=== PATIENT | female | born 1975 | race Caucasian/White ===

== ENCOUNTER 2017-05-22 09:00 | Outpatient (RCR) | payer OTHER, SELFPAY | END 2017-06-11 23:59 | LOC: NS 09:00 | PROVIDERS: Family Provider Family Medicine; PCP Family Medicine; Visit Provider Family Medicine | DX: Z68.22 Body mass index [BMI] 22.0-22.9, adult (principal); Z71.3 Dietary counseling and surveillance | CPT/HCPCS: 97802; 97803 ==

== ENCOUNTER 2017-07-08 10:00 | Outpatient (RCR) | payer OTHER, SELFPAY ==
[2016-12-27 05:38] VITALS: BMI 25.0
[2016-12-31 07:56] VITALS: BP 127/68
== END 2017-07-09 23:59 ==
LOC: NS 10:00
PROVIDERS: Family Provider Family Medicine; PCP Family Medicine; Visit Provider Family Medicine
DX: Z68.22 Body mass index [BMI] 22.0-22.9, adult (principal); Z71.3 Dietary counseling and surveillance
CPT/HCPCS: 97803

== ENCOUNTER 2017-08-04 11:30 | Outpatient (RCR) | payer OTHER, SELFPAY | END 2017-08-09 23:59 | LOC: NS 11:30 | PROVIDERS: Family Provider Family Medicine; PCP Family Medicine; Visit Provider Family Medicine | DX: Z68.22 Body mass index [BMI] 22.0-22.9, adult (principal); Z71.3 Dietary counseling and surveillance | CPT/HCPCS: 97803 ==

== ENCOUNTER 2017-09-02 09:30 | Outpatient (RCR) | payer OTHER, SELFPAY | END 2017-09-08 23:59 | LOC: NS 09:30 | PROVIDERS: Family Provider Family Medicine; PCP Family Medicine; Visit Provider Family Medicine | DX: Z71.3 Dietary counseling and surveillance (principal); Z68.22 Body mass index [BMI] 22.0-22.9, adult | CPT/HCPCS: 97803 ==

== ENCOUNTER 2017-10-07 11:30 | Outpatient (RCR) | payer OTHER, SELFPAY | END 2017-10-09 23:59 | LOC: NS 11:30 | PROVIDERS: Family Provider Family Medicine; PCP Family Medicine; Visit Provider Family Medicine | DX: Z71.3 Dietary counseling and surveillance (principal); Z68.22 Body mass index [BMI] 22.0-22.9, adult | CPT/HCPCS: 97803 ==

== ENCOUNTER 2017-11-06 10:30 | Outpatient (RCR) | payer OTHER, SELFPAY | END 2017-11-06 10:31 | LOC: NS 10:30 | PROVIDERS: Family Provider Family Medicine; PCP Family Medicine; Visit Provider Family Medicine | DX: Z71.3 Dietary counseling and surveillance (principal); Z68.22 Body mass index [BMI] 22.0-22.9, adult | CPT/HCPCS: 97803 ==

== ENCOUNTER → 2018-03-23 10:45 | Outpatient (CLI) | payer OTHER, SELFPAY ==
--- NOTE | 2018-03-23 10:47 | BI_ITS ---
MAMMOGRAPHY - BILATERAL SCREENING REASON FOR EXAM: Female, 42 years old. Routine annual screening examination. PERTINENT HISTORY: Aunt with breast cancer. TECHNIQUE: Digital bilateral breast pa (3D mammographic acquisition) in the CC and MLO projections. 2-D mediolateral oblique (MLO) and craniocaudad (CC) views of both breasts were obtained. CAD: Full Field Digital Mammography with Computer Added Detection was performed. COMPARISON: Comparison is made with prior study dated March 20, 2017 and February 05, 2016. FINDINGS: Breast Composition: The breasts are heterogeneously dense, which may obscure small masses. There are no dominant masses or suspicious calcifications. No other significant abnormalities are identified. There has been no significant change since the prior study. BI/SCREENING MAMM (CAD), BILAT IMPRESSION: Stable bilateral screening mammogram. Yearly follow-up mammogram recommended. (A) ASSESSMENT CATEGORY: BIRADS Category 1: Negative. A letter regarding these results will be sent to the patient by the facility within 30 days. Approximately 10% of breast cancers are not detected by mammography. A normal mammogram should not delay biopsy of a clinically suspicious abnormality. [id number] Electronically Signed: Yoan June MD at 12:40 EST Tel [phone], Service support ,
== END ==
PROVIDERS: Family Provider Family Medicine; PCP Family Medicine; Referring Provider Obstetrics & Gynecology; Visit Provider Obstetrics & Gynecology
DX: Z12.31 Encounter for screening mammogram for malignant neoplasm of breast (principal)
CPT/HCPCS: 77063; 77067

== ENCOUNTER → 2019-02-04 10:33 | Outpatient (CLI) | payer OTHER, SELFPAY ==
[2019-02-10 12:59] LABS: HPV Reflexed? NOT INDICATED
== END ==
PROVIDERS: Visit Provider Obstetrics & Gynecology
DX: Z12.4 Encounter for screening for malignant neoplasm of cervix (principal)
CPT/HCPCS: 88175; G0145

== ENCOUNTER → 2019-03-25 11:00 | Outpatient (CLI) | payer OTHER, SELFPAY ==
--- NOTE | 2019-03-25 11:03 | BI_ITS ---
MAMMOGRAPHY - BILATERAL SCREENING REASON FOR EXAM: Female, 43 years old. Routine annual screening examination. PERTINENT HISTORY: Aunt with breast cancer. TECHNIQUE: Digital bilateral breast rebekah (3D mammographic acquisition) in the CC and MLO projections. 2-D mediolateral oblique (MLO) and craniocaudad (CC) views of both breasts were obtained. CAD: Full Field Digital Mammography with Computer Added Detection was performed. COMPARISON: Comparison is made with prior study dated March 23, 2018 and March 20, 2017. FINDINGS: Breast Composition: The breasts are heterogeneously dense, which may obscure small masses. There are no dominant masses or suspicious calcifications. No other significant abnormalities are identified. There has been no significant change since the prior study. BI/SCREEN MAMM (CAD) W/REBEKAH BILAT IMPRESSION: Stable bilateral screening mammogram. Yearly follow-up mammogram recommended. (A) ASSESSMENT CATEGORY: BIRADS Category 1: Negative. A letter regarding these results will be sent to the patient by the facility within 30 days. Approximately 10% of breast cancers are not detected by mammography. A normal mammogram should not delay biopsy of a clinically suspicious abnormality. [id number] Electronically Signed: Yoan June, at 12:49 EST , Service support ,
== END ==
PROVIDERS: Family Provider Family Medicine; PCP Family Medicine; Referring Provider Obstetrics & Gynecology; Visit Provider Obstetrics & Gynecology
DX: Z12.31 Encounter for screening mammogram for malignant neoplasm of breast (principal)
CPT/HCPCS: 77063; 77067

== ENCOUNTER → 2019-07-06 09:35 | Outpatient (CLI) | payer OTHER, SELFPAY ==
--- NOTE | 2019-07-06 09:40 | RAD_ITS ---
STUDY: X-RAY - LEFT ANKLE REASON FOR EXAM: Female, 43 years old. PT FELL DOWN STAIRS, LATERAL PAIN AND SWELLING, BRUISING ALONG LATERAL FOOT AND ACROSS TOES TECHNIQUE: 3 view(s) of the ankle. COMPARISON: None. FINDINGS: Normal visualized distal tibia and fibula a secondary center of ossification are obtained for aspect of the lateral malleolus. The medial malleolus is normal.. Normal tibiotalar articulation and ankle mortise. Normal visualized talus and calcaneus. The visualized subtalar, talonavicular, calcaneocuboid and tarsal articulations are normal. The soft tissue structures show soft tissue swelling over the lateral malleolus. RAD/Ankle min 3 Views IMPRESSION: Soft tissue swelling over the lateral malleolus with no evidence of fracture. Electronically Signed: Omar Coe, at 11:08 EST Tel , Service support ,
--- NOTE | 2019-07-06 09:40 | RAD_ITS ---
STUDY: X-RAY - LEFT FOOT CLINICAL: Female, 43 years old. PT FELL DOWN STAIRS, LATERAL PAIN AND SWELLING, BRUISING ALONG LATERAL FOOT AND ACROSS TOES COMPARISON: None FINDINGS: [Studies of the left foot shows no evidence of fracture, dislocation, or bony destruction.] RAD/Foot min 3 Views IMPRESSION: [Normal left foot]. Electronically Signed: Omar Saravanan, at 10:24 EST Tel , Service support ,
== END ==
PROVIDERS: PCP Family Medicine; Referring Provider Family Medicine; Visit Provider Family Medicine
DX: S93.402A Sprain of unspecified ligament of left ankle, initial encounter (principal); W10.9XXA Fall (on) (from) unspecified stairs and steps, initial encounter
CPT/HCPCS: 73610; 73630

== ENCOUNTER 2020-02-07 10:34 | Outpatient (RCR) | payer OTHER, SELFPAY | END 2020-02-09 23:59 | LOC: EMPH 10:34 | PROVIDERS: Visit Provider Family Medicine Geriatric Medicine | DX: Z11.59 Encounter for screening for other viral diseases (principal) | CPT/HCPCS: 87635; U0003 ==

== ENCOUNTER → 2020-04-13 13:35 | Outpatient (CLI) | payer OTHER, SELFPAY ==
--- NOTE | 2020-04-13 13:37 | BI_ITS ---
MAMMOGRAPHY - BILATERAL SCREENING REASON FOR EXAM: Female, 44 years old. Routine annual screening examination. PERTINENT HISTORY: Aunt with breast cancer. TECHNIQUE: Digital bilateral breast rebekah (3D mammographic acquisition) in the CC and MLO projections. 2-D mediolateral oblique (MLO) and craniocaudad (CC) views of both breasts were obtained. CAD: Full Field Digital Mammography with Computer Added Detection was performed. COMPARISON: Comparison is made with prior study dated 03/25/2019 and 03/23/2018. FINDINGS: Breast Composition: The breasts are heterogeneously dense, which may obscure small masses. There are no dominant masses or suspicious calcifications. No other significant abnormalities are identified. There has been no significant change since the prior study. BI/SCREEN MAMM (CAD) W/REBEKAH BILAT IMPRESSION: Stable bilateral screening mammogram. Yearly follow-up mammogram recommended. (A) ASSESSMENT CATEGORY: BIRADS Category 1: Negative. A letter regarding these results will be sent to the patient by the facility within 30 days. Approximately 10% of breast cancers are not detected by mammography. A normal mammogram should not delay biopsy of a clinically suspicious abnormality. [id number] Electronically Signed: Yoan June, at 14:34 EST , Service support ,
== END ==
PROVIDERS: PCP Family Medicine; Referring Provider Obstetrics & Gynecology; Visit Provider Obstetrics & Gynecology
DX: Z12.31 Encounter for screening mammogram for malignant neoplasm of breast (principal)
CPT/HCPCS: 77063; 77067

== ENCOUNTER → 2020-06-20 10:45 | Outpatient (CLI) | payer OTHER, SELFPAY ==
[2020-06-20 13:17] LABS: Vitamin D,25 Hydroxy 21.8 ng/mL
[2020-06-20 13:41] LABS: Thyroid Stim Hormone (TSH) 0.99 uIU/mL (0.358-3.74)
== END ==
LOC: LAB 10:47 → MTLAB 10:48
PROVIDERS: PCP Family Medicine; Referring Provider Family Medicine; Visit Provider Family Medicine
DX: Z13.29 Encounter for screening for other suspected endocrine disorder (principal); Z13.21 Encounter for screening for nutritional disorder
CPT/HCPCS: 36415; 82306; 84443

== ENCOUNTER → 2021-03-01 15:34 | Outpatient (CLI) | payer OTHER, SELFPAY ==
[2021-03-06 14:57] LABS: HPV Reflexed? NOT INDICATED
== END ==
PROVIDERS: PCP Family Medicine; Visit Provider Obstetrics & Gynecology
DX: Z12.4 Encounter for screening for malignant neoplasm of cervix (principal)
CPT/HCPCS: 88175; G0145

== ENCOUNTER 2021-03-19 12:13 | Outpatient (RCR) | payer OTHER, SELFPAY | END 2021-04-10 23:59 | LOC: LABSPEC 12:13 | PROVIDERS: PCP Family Medicine; Referring Provider Family Medicine Geriatric Medicine; Visit Provider Family Medicine Geriatric Medicine | DX: Z03.818 Encounter for observation for suspected exposure to other biological agents ruled out (principal) | CPT/HCPCS: 87426 ==

== ENCOUNTER → 2021-04-17 13:08 | Outpatient (CLI) | payer OTHER, SELFPAY ==
--- NOTE | 2021-04-17 13:10 | BI_ITS ---
MAMMOGRAPHY - BILATERAL SCREENING REASON FOR EXAM: Female, 45 years old. Routine annual screening examination. PERTINENT HISTORY: Aunt with breast cancer. TECHNIQUE: Digital bilateral breast rebekah (3D mammographic acquisition) in the CC and MLO projections. 2-D mediolateral oblique (MLO) and craniocaudad (CC) views of both breasts were obtained. CAD: Full Field Digital Mammography with Computer Added Detection was performed. COMPARISON: Comparison is made with prior study dated 04/13/2020 and 03/25/2019 FINDINGS: Breast Composition: The breasts are heterogeneously dense, which may obscure small masses. There are no dominant masses or suspicious calcifications. No other significant abnormalities are identified. There has been no significant change since the prior study. BI/SCRN MAMM (CAD)W/REBEKAH BILAT IMPRESSION: Stable bilateral screening mammogram. Yearly follow-up mammogram recommended. (A) ASSESSMENT CATEGORY: BIRADS Category 1: Negative. A letter regarding these results will be sent to the patient by the facility within 30 days. Approximately 10% of breast cancers are not detected by mammography. A normal mammogram should not delay biopsy of a clinically suspicious abnormality. [id number] Electronically Signed: Yoan June MD at 8:21 EST , Service support ,
== END ==
PROVIDERS: PCP Family Medicine; Referring Provider Obstetrics & Gynecology; Visit Provider Obstetrics & Gynecology
DX: Z12.31 Encounter for screening mammogram for malignant neoplasm of breast (principal)
CPT/HCPCS: 77063; 77067

== ENCOUNTER 2021-05-03 13:37 | Outpatient (RCR) | payer OTHER, SELFPAY | END 2021-05-11 23:59 | LOC: EMPH 13:37 | PROVIDERS: PCP Family Medicine; Referring Provider Family Medicine Geriatric Medicine; Visit Provider Family Medicine Geriatric Medicine | DX: Z03.818 Encounter for observation for suspected exposure to other biological agents ruled out (principal) ==

== ENCOUNTER 2022-05-01 07:20 | Day surgery (SDC) | payer OTHER, SELFPAY ==
[2022-05-01] VITALS (10 sets, daily range): BP systolic 100–113; BP diastolic 50–71; PULSE 76–88; RESP 16–18; TEMP 36.1–36.3; O2SAT 93–100; BMI 25.1
[2022-05-01] MEDS: Lactated Ringers 1,000 ML 15 ML IV ×2 (07:55→09:09)
--- NOTE | 2022-05-01 08:39 | DCINST_ITS ---
Discharge Instructions Procedure General Surgery Diet Discharge Diet: Light diet - advance as tolerated (if you have questions about your diet instructions, please talk to you doctor.) Activity Discharge Activity: May Not Drive (for 3-5 days or while taking narcotic pain medicine.) May shower in (days): 1 Lifting Restrictions: 10 pounds Dressing / Incision Call your doctor if your incision/area has: Continuous Slow Oozing, Sudden Increased Bleeding, Increased Pain/ Swelling, Increased Redness and Foul Smelling Discharge Call your doctor if you observe: Fever of 101 or Higher Suture Line Care: Avoid Pulling/Pushing and Avoid Pinching/Bending Additional Dressing/Incision Instructions:: Change or remove dressing in 4 days. Leave steri-strips in place for 1 week. Follow Up Care Please Follow Up With: Vito Jeffers MD When: Call [phone] to make an appointment to be seen in about 10 days. Test Results: Test results from this visit will be discussed in further detail at your follow- up appointment, if applicable. Discharge Plan Admission Attending Provider: Vito Jeffers Primary Care Provider: Jimmy Gonzáles Discharge Orders/Prescriptions Prescriptions: No Action amitriptyline 25 mg tablet 10 mg PO QHS PRN (Reason: Sleep) Mirena 20 mcg/24 hours (8 yrs) 52 mg intrauterine device 1 device intrauterine ONCE Rx Instructions: as a single dose fluoxetine 20 mg capsule 20 mg PO DAILY Qty: 90 4RF Referrals / Follow Up: Jimmy Gonzáles MD [Primary Care Provider] - Disposition Disposition (needs filled in before D/C Order can be placed): Home, Self Care
--- NOTE | 2022-05-01 08:39 | HP.PCM_ITS ---
History and Physical Date of Admission: 05/01/22 isit Reasons:?UMBILICAL HERNIA Chief Complaint: Consult for umbilical hernia Registered Land Surveyor Required: No Is patient in pain?: No Allergies No Known Allergies Allergy (Verified 04/18/22 08:31) Medications amitriptyline 25 mg tablet 10 mg PO QHS PRN 03/13/22 [History Confirmed 04/18/22] fluoxetine 20 mg capsule 20 mg PO DAILY #90 caps 03/13/22 [Rx Confirmed 04/18/22] levonorgestrel 20 mcg/24 hours (8 yrs) 52 mg intrauterine device (Mirena) 1 device intrauterine ONCE 03/13/22 [History Confirmed 04/18/22] PFSH Surgical History? S/P tonsillectomy Family History? Father HyperlipidemiaMother Hypertension Social History? Smoking Status:? Never smoker alcohol intake:? never substance use type:? does not use caffeine:? No what type of physical activity do you participate in:? walking and weight training frequency:? 5-6 times per week seatbelt use:? always do you feel safe at home:? Yes additional social history:? - Viktor HPI HPI HPI: 46-year-old female presents today to discuss umbilical hernia.? She is referred by Dr. Obdulio Rocha and Dr. Shad Gonzáles and a written compromise surgical consult recommendations will return to him.? By report she had presented with abdominal pain in the periumbilical area.? Sudden onset.? At the time of her evaluation umbilical hernia was felt to be reducible.? She states that literally on a weekly basis now she is having protrusion where it becomes 3-4 times larger than its [place] self.? It is tender.? She is still able to reduce it.? She has not had any surgery.? No abdominal wall incisions. 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 There was no eliciting injury or accident.? She knew she had an umbilical hernia dating back to the summer as it was noticed when she was swimming.? She only recently has had the discomfort as mentioned. She otherwise enjoys very good health ROS General General: No weight change, appetite, fatigue, colon cancer, breast cancer or weakness HEENT HEENT: No difficulty swallowing, eye injury, eye surgery, swollen glands or hoarseness Endo Endocrine: No thyroid disease, diabetes mellitus, thyroid cancer, Hair loss, heat intolerance or cold intolerance Skin Skin: No rash or changing moles Breast Breast: No left breast lump, right breast lump, nipple discharge, breast pain, abnormal mammogram, abnormal US or breast enlargement Musc Musculoskeletal: No back problems, arthritis, rheumatoid arthritis, gout or joint pain Cardio Cardiovascular: No murmur, pacemaker, heart disease, atrial fibrillation, high blood pressure, heart attack, heart stent, palpitations, shortness of breat with exertion or chest pain Psych Psychiatric: No depression, anxiety or hearing voices Resp Respiratory: No shortness of breath, No sleep apnea, No cough, No COPD, No asthma, No emphysema and No wheezing Gastro Gastrointestinal: No abdominal pain, No nausea or vomiting, No diarrhea, No constipation, No blood in stool, No acid reflux, No hemorrhoids, No ulcers, No gallbladder problem and No black,tarry stools Estrada Hematologic: No blood thinners, No blood disorders, No bleeding, No anemia and No blood clots Neuro Neurologic: No system reviewed and no additional complaints, except as documented, No as per HPI, No abnormal gait, No abnormal hearing, No abnormal movements, No abnormal speech, No behavioral changes, No burning sensations, No confusion, No convulsions, No disequilibrium, No dizziness, No localized weakness, No frequent falls, No headache(s), No lack of coordination, No loss of vision, No memory loss, No numbness, No other visual disturbances, No radicular pain, No restless legs, No sensory deficit, No syncope, No tingling, No tremor(s), No weakness and No other Exam Const General: cooperative, healthy appearing, comfortable and no acute distress [facility] Head: normal to inspection Eyes General: appearance normal, both eyes and all related structures Neck Neck: normal visual inspection Chest Chest palpation & inspection: normal inspection of the chest Resp Effort & Inspection: normal respiratory effort Auscultation: clear to auscultation bilaterally Cardio Rate: regular rate Rhythm: regular rhythm GI Palpation: soft and no hepatosplenomegaly Auscultation: normal bowel sounds Other: Obviously noticeable umbilical hernia with contents.? Prominent on the superior aspect of the umbilicus particular when standing.? Despite effort it is not completely reducible with continued residual fibrofatty type tissue present even with the patient's supine Musc Cervical Spine: normal cervical lordosis Skin General: no rashes or lesions noted Neuro General: patient alert, patient awake and patient oriented x3 Extrem General: normal to inspection Psych Appearance: grossly normal Assessment and Plan Assessment and Plan (1) Umbilical hernia without obstruction or gangrene: ?Status:?Acute ?Plan: Incarcerated umbilical hernia.? Not strangulated.? Not completely reducible.? Symptomatic. I recommended the patient umbilical herniorrhaphy with mesh.? Likely utilize a Ventralex type product.? Hopefully in the preperitoneal space.? I discussed technique, benefit, risk, alternatives.? She has had an opportunity to ask and have questions answered.? We will try to schedule and expedite her care. I have been very explicit regarding her return to work and work activities.? I anticipate a full 6weeks to 80% strength.? She is aware of the risk of breakdown and recurrence if physical activity is pursued too early.? I appreciate the opportunity of assisting with her surgical care. Copy: Dr. Shad Gonzáles and Dr. Obdulio Jeffers M.D., F.A.C.S I have examined the patient and the H&P has been reviewed. There are no clinical changes since date of exam. Vito Jeffers M.D., F.A.C.S.
[2022-05-01] MEDS: Cefazolin 2 GM in 0.9% Normal Saline 100 ML IV (09:08)
--- NOTE | 2022-05-01 09:30 | HERN_PTH ---
PATIENT: JEFFERY SHELL LOC: [facility] U#:[id number] AGE/SX: 46/F ROOM: RE05/01/[address]: Dr. Vito Jeffers MD : 1975 BED: DIS: 05/01/2022 SPEC #: [id number] RECD: 05/01/22 10:18 STATUS: MARY REAnais #: [id number] DANIEL: 05/01/22 09:[address]: Vito Jeffers DEPT: SURGICAL PATHOLOGY RECD BY: Arleen Guerra ENTERED: 05/01/22 11:04 SP TYPE: Hernia OTHR DR: Dr. Shad Gonzáles MD Tissues: HERNIA Procedures: Surgery Specimen Level II HEADER OPERATION: Umbilical hernia repair with mesh PRE-OP DIAGNOSIS: Umbilical hernia TISSUE SUBMITTED: Umbilical hernia sac and contents MICROSCOPIC DIAGNOSIS Umbilical hernia sac and contents: A piece of fibroadipose and fibroconnective tissue, consistent with hernia sac and with chronic inflammation and reactive changes. EWA:carmelo 05/02/2022 MICROSCOPIC DESCRIPTION Slides are reviewed. GROSS DESCRIPTION Received in fixative is one container labeled with the patient's name and designated umbilical hernia sac and contents. The specimen consists of an irregular piece of adipose tissue measuring 5 x 4 x 1 cm. Sections do not reveal any mass lesion. Environmental Health Technologist sections are submitted in one cassette. / EWA:carmelo 05/01/2022 TC:5 CPT: 00048
[2022-05-01] MEDS: Bupivacaine 0.25% 30 ML Vial (09:58)
--- NOTE | 2022-05-01 09:59 | PCM.OPRPT ---
Report of Operation Date of Procedure: 05/01/22 Pre-Operative Diagnosis: Incarcerated umbilical hernia Post-Operative Diagnosis: Same Surgery/Procedure Performed:: Umbilical herniorrhaphy with 4.[address] hernia patch Lot [id number], reference [id number], expiry date 11/07/2023 Description of Surgical Findings:: Timeout informed consent was obtained. 46-year-old female was taken to the operating placed on table underwent general anesthesia Ancef 2 g were given intravenously the abdomen sterilely prepped and draped a curvilinear incision was made in the inferior portion of the umbilicus sharp and blunt dissection was performed there was a significant amount of preperitoneal fatty tissue incarcerated within the defect this was sharply and bluntly dissected free and then amputated with electrocautery the preperitoneal space was developed a 4.[address] hernia patch was moistened and then placed in the retrorectus space. Good positioning was felt to been achieved. The tails were secured with interrupted 0 Nurolon. The fascia was approximated transversely and this 1.5 cm diameter defect with simple sutures of 0 Nurolon. The umbilicus was secured to the fascia with a interrupted 4-0 Monocryl and then the subdermal edges approximated with the same. Skin edges approximated with surgical glue. Cottonball, Telfa, OpSite dressings applied. Sponge instrument and needle counts were reported to the surgeon to be correct. Specimen hernia sac with contents. Drains none. Blood loss minimal. It is of note that 0.25% Marcaine was used as a local anesthetic. A total of 30 cc was used. The patient was taken to recovery area in satisfied condition without apparent complication Vito Jeffers M.D., F.A.C.S. Surgeon: Vito Jeffers Type of Anesthesia: General and Local Anesthesiologist: Oly Issa
== END 2022-05-01 12:34 | disposition home or self-care (01) ==
LOC: SDC 07:21 → AC 07:22
PROVIDERS: PCP Family Medicine; Referring Provider Surgery; Visit Provider Surgery
PROC: (CPT 49587; principal; 2022-05-01 09:15)
DX: K42.0 Umbilical hernia with obstruction, without gangrene (principal)
CPT/HCPCS: 49587; 00750; 88302; J7120; C1781; J2405

== ENCOUNTER → 2022-05-14 | Outpatient (CLI) | payer OTHER, SELFPAY ==
--- NOTE | 2022-05-14 09:29 | BI_ITS ---
MAMMOGRAPHY - BILATERAL SCREENING REASON FOR EXAM: Female, 46 years old. Routine annual screening examination. PERTINENT HISTORY: Aunt with breast cancer. TECHNIQUE: Digital bilateral breast rebekah (3D mammographic acquisition) in the CC and MLO projections. 2-D mediolateral oblique (MLO) and craniocaudad (CC) views of both breasts were obtained. CAD: Full Field Digital Mammography with Computer Added Detection was performed. COMPARISON: Comparison is made with prior study dated 04/17/2021 and 04/13/2020. FINDINGS: Breast Composition: The breasts are heterogeneously dense, which may obscure small masses. There are no dominant masses or suspicious calcifications. Stable small benign appearing bilateral axillary lymph nodes. No other significant abnormalities are identified. There has been no significant change since the prior study. BI/SCRN MAMM (CAD)W/REBEKAH BILAT IMPRESSION: Stable bilateral screening mammogram. Yearly follow-up mammogram recommended. (A) ASSESSMENT CATEGORY: BIRADS Category 2: Benign. A letter regarding these results will be sent to the patient by the facility within 30 days. Approximately 10% of breast cancers are not detected by mammography. A normal mammogram should not delay biopsy of a clinically suspicious abnormality. [id number] Electronically Signed: Yoan June MD at 12:28 EST ,
== END | disposition home or self-care (01) ==
LOC: OPBI 09:28
PROVIDERS: PCP Family Medicine; Visit Provider Obstetrics & Gynecology
DX: Z12.31 Encounter for screening mammogram for malignant neoplasm of breast (principal)
CPT/HCPCS: 77063; 77067

== ENCOUNTER → 2022-10-17 | Outpatient (CLI) | payer OTHER, SELFPAY ==
--- NOTE | 2022-10-17 12:03 | RAD_ITS ---
HISTORY: melena TECHNIQUE: XR Abdomen Series W/ Chest 1 View. COMPARISON: None. FINDINGS: --Chest: CARDIOMEDIASTINAL BORDERS: Cardiac silhouette within normal limits in size. Mediastinal contour not enlarged. LUNGS: Radiographically clear. PLEURA: No pneumothorax or significant pleural effusion. BONES: Unremarkable. --Abdomen: BOWEL GAS PATTERN: No dilated small bowel loops identified. Large amount of stool throughout the colon FREE AIR: None seen on upright view. CALCIFICATIONS: Small right pelvic phlebolith observed. BONES AND SOFT TISSUES: Intrauterine device in the pelvis. No acute osseous abnormality identified. RAD/Acute Abdomen Inc Chest IMPRESSION: Large amount of stool in the colon. Electronically Signed: Nisa Suggs MD at 8:48 EDT ,
[2022-10-17 15:42] LABS: Erythrocyte Sedimentation Rate 5 mm/hr (0-30)
[2022-10-17 15:45] LABS: Hematocrit 38.9 % (37-47); Mean Corp Hgb Conc 33.4 g/dL (32-36); Mean Corpuscular Volume 92.8 fL (81-99); Mean Platelet Vol. 9.5 fl (6.2-12.0); Platelet Count 283 K/mm3 (150-450); RBC Distribution Width CV 12.1 % (11.6-14.6); RBC Distribution Width SD 41.1 fl (35.1-43.9); Red Blood Count 4.19 M/mm3 (4.2-5.4); White Blood Count 4.4 K/mm3 (4.4-11.0)
[2022-10-17 16:19] LABS: ALB/GLOB Ratio 1.1 RATIO (0.9-2.4); AST(SGOT) 15 U/L (15-37); Alanine Aminotransfer ALT/SGPT 20 U/L (13-56); Alkaline Phosphatase 49 U/L (45-117); Anion Gap 6 (5-15); BUN 12 mg/dL (7-18); BUN/Creat Ratio 17.4 RATIO (10-20); Calcium,Total 9.4 mg/dL (8.5-10.1); Chloride 108 mmol/L (98-107); Creatinine, Serum 0.69 mg/dL (0.55-1.02); EST Glomerular Filtration Rate 97 mL/min (>60); Est Glom Filt Rate - Afr Amer 118 mL/min (>60); Ferritin 43 ng/mL (8-252); Globulin 3.5 g/dL (2.2-4.2); Glucose 87 mg/dL (74-106); Iron 119 ug/dL (50-170); Potassium 4.1 mmol/L (3.5-5.1); Protein, Total 7.5 g/dL (6.4-8.2); Sodium Level 138 mmol/L (136-145)
== END | disposition home or self-care (01) ==
LOC: MTLAB 11:58
PROVIDERS: PCP Family Medicine; Referring Provider Family Medicine; Visit Provider Family Medicine
DX: K92.1 Melena (principal)
CPT/HCPCS: 36415; 74022; 80053; 82728; 83540; 85027; 85652

== ENCOUNTER 2022-11-25 09:06 | Day surgery (SDC) | payer OTHER, SELFPAY ==
[2022-11-25] VITALS (7 sets, daily range): BP systolic 96–115; BP diastolic 62–73; PULSE 62–74; RESP 16; TEMP 36.4–36.8; O2SAT 96–99; BMI 24.5
--- NOTE | 2022-11-25 09:24 | HP.PCM_ITS ---
History and Physical Date of Admission: 11/25/22 Date of Service: 10/29/22 MR#:[id number] Acct:[id number] Name: JEFFERY SHELL Rep #: [id number] : 1975 Provider: Dr. Kellie Damian MD Age/Sex: 46/F Location: [facility] Status: Signed with Addenda Signed Intake Vital Signs 05/01/2207:56 10/29/2308:41 Height 5 ft 5 in 5 ft 5 in Weight: 157 lb 8 oz BMI 26.2 BP 116/79 Blood Pressure Location Rt brachial Position Sitting Respiration 18 Pulse 86 Pulse Source Monitor Pulse Oximetry (%) 99 Intake Visit Reasons: COLONOSCOPY/BLOOD IN STOOL Chief Complaint: colonoscopy consult Allergies No Known Allergies Allergy (Verified 05/14/22 09:01) Medications amitriptyline 25 mg tablet 10 mg PO QHS PRN Sleep 03/13/22 [History Confirmed 10/29/22] fluoxetine 20 mg capsule 20 mg PO DAILY #90 caps 03/13/22 [Rx Confirmed 10/29/22] levonorgestrel 21 mcg/24 hours (8 yrs) 52 mg intrauterine device (Mirena) 1 device intrauterine ONCE 03/13/22 [History Confirmed 10/29/22] PFSH Medical History Non-smoker Wears contact lenses Surgical History History of umbilical hernia repair S/P tonsillectomy Family History Father HyperlipidemiaMother Hypertension Social History Smoking Status: Never smoker alcohol intake: never substance use type: does not use caffeine: No what type of physical activity do you participate in: walking and weight training frequency: 5-6 times per week seatbelt use: always do you feel safe at home: Yes additional social history: - Viktor HPI HPI HPI: 46-year-old female presents due to bright red blood per rectum. Patient states that she had quite a bit of diarrhea night before she noticed bright red blood per rectum for 2 days. Patient states it drips into the toilet and also had maybe a couple small clots. Patient denies having history of hemorrhoids or bright red blood per rectum previously. Patient did become constipated for about 6 days and take a laxative which had results but then again was constipated for another 5 days did see her PCP and took MiraLAX daily but she did not need any for the last 3 days as she has been having bowel function daily. Patient never had a previous colonoscopy, denies any family history of colon cancer, denies any chronic abdominal pain/nausea/vomiting/reflux. ROS General General: Yes fatigue; No weight change, appetite, colon cancer or breast cancer HEENT HEENT: No difficulty swallowing, eye injury, eye surgery, swollen glands or hoarseness Endo Endocrine: No thyroid disease, diabetes mellitus, thyroid cancer, Hair loss, heat intolerance or cold intolerance Skin Skin: No rash or changing moles Musc Musculoskeletal: No back problems, arthritis, rheumatoid arthritis, gout or joint pain Cardio Cardiovascular: No murmur, pacemaker, heart disease, atrial fibrillation, high blood pressure, heart attack, heart stent, palpitations, shortness of breat with exertion or chest pain Psych Psychiatric: Yes depression; No anxiety or hearing voices Resp Respiratory: No shortness of breath, No sleep apnea, No cough, No COPD, No asthma, No emphysema and No wheezing Gastro Gastrointestinal: No abdominal pain, No nausea or vomiting, Yes diarrhea, Yes constipation, Yes blood in stool, No acid reflux, No hemorrhoids, No ulcers, No gallbladder problem and No black,tarry stools Estrada Hematologic: No blood thinners, No blood disorders, No bleeding, No anemia and No blood clots Neuro Neurologic: No numbness and No tingling Exam Const General: cooperative, healthy appearing and no acute distress [facility] Head: normal to inspection Resp Effort & Inspection: normal respiratory effort Cardio Rate: regular rate GI Inspection: non-distended Palpation: soft, no guarding and nontender Rectal Exam: deferred Skin General: no rashes or lesions noted Neuro General: patient oriented x3 Extrem General: no clubbing, cyanosis or edema Psych Affect: normal affect Coding Level of Care Code Off vis,new,level 3 10/30/22 2724 <Electronically signed by Kellie Damian MD> Assessment and Plan Assessment and Plan (1) BRBPR (bright red blood per rectum): Status: Acute Plan I have discussed the above with the patient. I have offered the patient colonoscopy for evaluation. I have explained the risks/benefits of the procedure and described the procedure. I have discussed the risks with the patient, including but not limited to: infection, bleeding, perforation of the GI tract requiring emergency surgery, inability to complete the procedure, injury to any internal organs, complications of anesthesia, etc. - the patient understands and agrees to proceed. I have answered all the patient's questions to the patient's satisfaction and the patient has no further questions. The patient has been given instructions for the colon cleansing preparation. one day of clears, miralax/dulcolax split prep 11/05/22 3123 <Electronically signed by Kellie Damian MD> Date Kellie Damian MD
[2022-11-25 09:33] LABS: Internal QC Validated? YES +Cl - CLEAR BKGD; Pregnancy, Urine Negative Negative
[2022-11-25] MEDS: Lactated Ringers 1,000 ML 15 ML IV (09:41)
--- NOTE | 2022-11-25 10:57 | OP.CCLET_ITS ---
11/25/2022 Jimmy Gonzáles [address] [place] [address] Re : Colonoscopy procedure for [place] Dear Dr. Gonzáles This procedure was performed on Friday, November 25, 2022. My impressions and recommendations are as follows: Impressions : - Hemorrhoids found on perianal exam. - Non-bleeding internal hemorrhoids. - The entire examined colon is normal. - No specimens collected. Recommendations : - Discharge patient to home. - Resume previous diet. - Continue present medications. - Repeat colonoscopy in 10 years for screening purposes. My findings are described in the full procedure note, which is enclosed. If I can be of further assistance, please feel free to contact me at Doctor phone number(s): , Work: . Sincerely, MD Kellie Meyers MD 11/25/2022 10:56:51 AM This report has been signed electronically.
--- NOTE | 2022-11-25 10:57 | OP.COLON_ITS ---
Patient Name: Michelle Gramajo Procedure Date: 11/25/2022 10:21 AM Date of : 1975 Age: 47 Procedure: Colonoscopy Indications: Rectal bleeding Providers: Kellie Damian MD Referring MD: Jimmy Gonzáles Medicines: Monitored Anesthesia Care Patient Profile: This is a 47 year old female. Last Colonoscopy: none. The patient's first colonoscopy is today. Complications: No immediate complications. Procedure: Pre-Anesthesia Assessment: - Prior to the procedure, a History and Physical was performed, and patient medications and allergies were reviewed. The patient's tolerance of previous anesthesia was also reviewed. The risks and benefits of the procedure and the sedation options and risks were discussed with the patient. All questions were answered, and informed consent was obtained. Prior Anticoagulants: The patient has taken no previous anticoagulant or antiplatelet agents. ASA Grade Assessment: Per anesthesia. After reviewing the risks and benefits, the patient was deemed in satisfactory condition to undergo the procedure. After I obtained informed consent, the scope was passed under direct vision. Throughout the procedure, the patient's blood pressure, pulse, and oxygen saturations were monitored continuously. The was introduced through the anus and advanced to the cecum, identified by the appendiceal orifice, ileocecal valve and palpation. The colonoscopy was performed without difficulty. The patient tolerated the procedure well. The quality of the bowel preparation was good. Scope In: 10:31:08 AM Scope Withdrawal Time 0 hours 11 minutes 58 seconds Scope Out: 10:52:17 AM Total Procedure Duration Time 0 hours 21 minutes 9 seconds Findings: Hemorrhoids were found on perianal exam. Non-bleeding internal hemorrhoids were found. The hemorrhoids were Grade I (internal hemorrhoids that do not prolapse). The entire examined colon appeared normal. Impression: - Hemorrhoids found on perianal exam. - Non-bleeding internal hemorrhoids. - The entire examined colon is normal. - No specimens collected. Recommendation: - Discharge patient to home. - Resume previous diet. - Continue present medications. - Repeat colonoscopy in 10 years for screening purposes. Procedure Code(s): --- Professional --- 20437, PT, Colonoscopy, flexible; diagnostic, including collection of specimen(s) by brushing or washing, when performed (separate procedure) Diagnosis Code(s): --- Professional --- K64.0, First degree hemorrhoids K62.5, Hemorrhage of anus and rectum CPT copyright 2017 [employer]. All rights reserved. The codes documented in this report are preliminary and upon medical insurance coder review may be revised to meet current compliance requirements. MD Kellie Meyers MD 11/25/2022 10:56:51 AM This report has been signed electronically. Number of Addenda: 0 Note Initiated On: 11/25/2022 10:21 AM
== END 2022-11-25 12:06 | disposition home or self-care (01) ==
LOC: EN 09:07 → AC 09:10
PROVIDERS: Anesthesiology; PCP Family Medicine; Referring Provider Family Medicine; Visit Provider Surgery
PROC: 0DJD8ZZ Inspection of Lower Intestinal Tract, Via Natural or Artificial Opening Endoscopic (ICD-10-PCS; CPT 45378; principal; 2022-11-25 10:25)
DX: K64.0 First degree hemorrhoids (principal); K62.5 Hemorrhage of anus and rectum
CPT/HCPCS: 45378; 81025; J7120; J2405

== ENCOUNTER → 2023-05-15 | Outpatient (CLI) | payer OTHER, SELFPAY ==
--- NOTE | 2023-05-15 10:10 | BI_ITS ---
MAMMOGRAPHY - BILATERAL SCREENING REASON FOR EXAM: Female, 47 years old. Routine annual screening examination. PERTINENT HISTORY: Aunt with breast cancer. TECHNIQUE: Digital bilateral breast rebekah (3D mammographic acquisition) in the CC and MLO projections. 2-D mediolateral oblique (MLO) and craniocaudad (CC) views of both breasts were obtained. CAD: Full Field Digital Mammography with Computer Added Detection was performed. COMPARISON: Comparison is made with prior examination dated May 14, 2022 and April 17, 2021. FINDINGS: Breast Composition: The breasts are heterogeneously dense, which may obscure small masses. There are no dominant masses or suspicious calcifications. Stable small benign-appearing bilateral axillary lymph nodes. No other significant abnormalities are identified. There has been no significant change since the prior study. BI/SCRN MAMM (CAD)W/REBEKAH BILAT IMPRESSION: Stable bilateral screening mammogram. Yearly follow-up mammogram recommended. (A) ASSESSMENT CATEGORY: BIRADS Category 2: Benign. A letter regarding these results will be sent to the patient by the facility within 30 days. Approximately 10% of breast cancers are not detected by mammography. A normal mammogram should not delay biopsy of a clinically suspicious abnormality. [id number] Electronically Signed: Yoan June MD at 13:50 EST ,
== END | disposition home or self-care (01) ==
LOC: OPBI 10:10
PROVIDERS: PCP Family Medicine; Referring Provider Obstetrics & Gynecology; Visit Provider Obstetrics & Gynecology
DX: Z12.31 Encounter for screening mammogram for malignant neoplasm of breast (principal)
CPT/HCPCS: 77063; 77067

== ENCOUNTER → 2024-04-19 | Outpatient (CLI) | payer OTHER, SELFPAY ==
[2024-04-19 11:58] LABS: Cholesterol 224 mg/dL (200); Glucose 92 mg/dL (74-106); High Density Lipoprotein 91 mg/dL; T4 Free Direct 1.35 ng/dL (0.76-1.46); Triglycerides 49 mg/dL; Very Low Density Lipoprotein 10 mg/dL (5-40)
[2024-04-20 08:11] LABS: Thyroid Peroxidase AB < 9 IU/mL (0-34)
== END | disposition home or self-care (01) ==
LOC: BWCLAB 09:09
PROVIDERS: PCP Family Medicine; Referring Provider Nurse Practitioner Women's Health; Visit Provider Nurse Practitioner Women's Health
DX: Z13.220 Encounter for screening for lipoid disorders (principal); R63.5 Abnormal weight gain; Z13.1 Encounter for screening for diabetes mellitus; Z13.21 Encounter for screening for nutritional disorder
CPT/HCPCS: 36415; 80061; 82306; 82947; 84439; 84443; 86376

== ENCOUNTER → 2024-05-18 | Outpatient (CLI) | payer OTHER, SELFPAY ==
--- NOTE | 2024-05-18 13:32 | BI_ITS ---
MAMMOGRAPHY - BILATERAL SCREENING REASON FOR EXAM: Female, 48 years old. Routine annual screening examination. PERTINENT HISTORY: Aunt with breast cancer. TECHNIQUE: Digital bilateral breast rebekah (3D mammographic acquisition) in the CC and MLO projections. 2-D mediolateral oblique (MLO) and craniocaudad (CC) views of both breasts were obtained. CAD: Full Field Digital Mammography with Computer Added Detection was performed. COMPARISON: Comparison is made with prior study May 15, 2023 and May 14, 2022. FINDINGS: Breast Composition: The breasts are heterogeneously dense, which may obscure small masses. There are no dominant masses or suspicious calcifications. Stable bilateral fat containing axillary lymph nodes. No other significant abnormalities are identified. There has been no significant change since the prior study. BI/SCRN MAMM (CAD)W/REBEKAH BILAT IMPRESSION: Stable bilateral screening mammogram. Yearly follow-up mammogram recommended. (A) ASSESSMENT CATEGORY: BIRADS Category 2: Benign. A letter regarding these results will be sent to the patient by the facility within 30 days. Approximately 10% of breast cancers are not detected by mammography. A normal mammogram should not delay biopsy of a clinically suspicious abnormality. [id number] Electronically Signed: Yoan June MD at 14:03 EST ,
== END | disposition home or self-care (01) ==
LOC: OPBI 13:31
PROVIDERS: PCP Family Medicine; Referring Provider Nurse Practitioner Women's Health; Visit Provider Nurse Practitioner Women's Health
DX: Z12.31 Encounter for screening mammogram for malignant neoplasm of breast (principal)
CPT/HCPCS: 77063; 77067

== ENCOUNTER 2024-07-29 06:00 | Day surgery (SDC) | payer OTHER, SELFPAY ==
[2024-07-29] VITALS (11 sets, daily range): BP systolic 104–120; BP diastolic 58–72; PULSE 68–99; RESP 12–16; TEMP 36–37.2; O2SAT 92–99; BMI 26.0
[2024-07-29] MEDS: 0.9% Normal Saline (1000mL) 1,000 ML 15 ML IV (06:44)
--- NOTE | 2024-07-29 07:12 | PCM.HP.BLA ---
History and Physical Date of Admission: 07/29/24 The pt is examined and there are no changes to the H&P dated 07/15/24. Pt for bilateral upper blepharoplasty. Informed consent is obtained. She is marked in the pre-op holding area. Assessment & Plan Assessment/Plan (1) Dermatochalasis of both upper eyelids: (2) Visual field defect: PLAN: Plan For bilateral upper blepharoplaslty
[2024-07-29 07:13] LABS: Internal QC Validated? YES +Cl - CLEAR BKGD; Pregnancy, Urine Negative Negative
--- NOTE | 2024-07-29 07:25 | PRE.ANES_ITS ---
ASA Classification* ASA Classification ASA Classification: 2 Assessment & Plan Anesthesia* Anesthesia Assessment Anesthesia Assessment: Discussed sedation and/or anesthesia options, risks, benefits, and alternatives with patient/parents/legal guardian/POA. Questions invited. The patient/parents/legal guardian/POA seems to understand and agrees to proceed with anesthesia plan. Reviewed the physical assessment, medical history, allergy history and patient home medications list prior to surgery/procedure/anesthetic and documented any changes. Performed airway and anesthesia risk assessments. Anesthesia Type Anesthesia Type: General History Source History Obtained from:: Patient and Chart Anesthesia Focused Assessment* Temperature: 98 F Pulse Rate: 68 Blood Pressure: 108/70 Respiratory Rate: 16 Pulse Ox: 98 Oxygen Delivery Method: Room Air Airway Assessment Mouth opens: >3 cm Mallampati Score: III Teeth Condition: Intact Neck Range of motion (ROM): Full ROM Focused Labs Anesthesia Preop lab: CBC WBC 4.4 K/mm3 (4.4-11.0) 10/17/22 11:59 10/17/22 RBC 4.19 M/mm3 (4.2-5.4) L 10/17/22 11:59 10/17/22 Hgb 13.0 g/dL (12.0-15.0) 10/17/22 11:59 10/17/22 Hct 38.9 % (37-47) 10/17/22 11:59 10/17/22 Plt Count 283 K/mm3 (150-450) 10/17/22 11:59 10/17/22 CHEMISTRY Potassium 4.1 mmol/L (3.5-5.1) 10/17/22 11:59 10/17/22 Sodium 138 mmol/L (136-145) 10/17/22 11:59 10/17/22 Phosphorus 3.2 mg/dL (2.5-4.9) 01/17/22 09:56 01/17/22 BUN 12 mg/dL (7-18) 10/17/22 11:59 10/17/22 Creatinine 0.69 mg/dL (0.55-1.02) 10/17/22 11:59 10/17/22 Glucose 92 mg/dL (74-106) 04/19/24 09:09 04/19/24 TSH 1.220 uIU/mL (0.358-3.740) 04/19/24 09:09 12/02/02 COAG Urine Test Negative Negative 07/29/24 06:15 07/29/24 Pre-Assessment Diagnosis/Proposed Procedure Planned Operative Procedure(s): (B) Bilateral upper blepharoplasty Anesthesia History Anesthesia History - digital content specialist: Anesthesia History - digital content specialist Hx Hospitalization No 07/15/24 11:44 Any Problems With Anesthesia No 07/15/24 11:44 Cholinesterase deficiency No 07/15/24 11:44 You/Your Family Experience No 07/15/24 11:44 fever (hyperthermia) with Relationship Recent Exposure to Contagious No 07/29/24 06:34 Disease Does patient have nerve No 07/15/24 11:44 stimulator Patient instructed to have device shut off --Does patient have Pacemaker No 07/29/24 06:34 or ICD? When Was Last Pacemaker Check QUESTION #4 FULL TEXT: You/Your Family Experience fever (hyperthermia) with Anesthesia Last Oral Intake Last Oral intake: Last Oral Intake NPO since 20:00 07/29/24 06:34 Meds taken in AM with sips of No 07/29/24 06:34 water? Meds patient instructed to take am of surgery PONV PONV - digital content specialist: PONV - digital content specialist Female Yes 07/15/24 11:44 HX of Motion Sickness Yes 07/15/24 11:44 HX of N/V After Surgery No 07/15/24 11:44 Non-Smoker Yes 07/15/24 11:44 Duration of Surgery greater Yes 07/15/24 11:44 than 60 minutes Number of Risk Factors 4 07/15/24 11:44 PONV Score Severe Risk 07/15/24 11:44 Height & Weight Height & Weight: Anesthesia: Height & Weight Height 5 ft 5 in 07/29/24 06:34 Weight: 71 kg 07/29/24 06:34 Body Mass Index (BMI) 26.0 07/29/24 06:34 Respiratory Assessment Respiratory Assessment - digital content specialist: Respiratory Tract Infection Hx - digital content specialist Hx Respiratory Tract Infection No 07/15/24 11:44 STOP Sleep Apnea STOP Sleep Apnea - digital content specialist: STOP Sleep Apnea - digital content specialist Hx Hypertension No 07/15/24 11:44 Hx Sleep Apnea No 07/15/24 11:44 CPAP BIPAP Do you snore loudly (louder No 07/15/24 11:44 than talking or can be heard Do you often feel tired/ No 07/15/24 11:44 fatigued/ sleepy during daytime? Has anyone observed you stop No 07/15/24 11:44 breathing during sleep? STOP Results Negative 07/15/24 11:44 QUESTION #5 FULL TEXT : Do you snore loudly (louder than talking or can be heard through closed doors)? Tobacco Use History Tobacco Use History - digital content specialist: Tobacco Use History - digital content specialist Tobacco Use Smoking Status Never smoker 07/15/24 11:44 Hx Tobacco Use No 07/15/24 11:44 Years Smoking Packs Smoked per Day Smoking Cessation Date was within the last 15 years Hx Smoking Cessation Date Hx Smoking Cessation Counseling Hematologic Medial History Hematologic Hx - digital content specialist: Hematologic Medical Hx - lead java developer architect Hx of Blood Transfusion No 07/15/24 11:44 Hx of Transfusion in last 3 No 07/15/24 11:44 Months Date of Last Transfusion (if within last 3 months) Ever experience any problems No 07/15/24 11:44 with transfusion(s)? Specify any problems Hx of Preganancy in last 3 No 07/15/24 11:44 Months Nurse Filling Out Transfusion SHREYAS 07/15/24 11:44 & Questions: Date: 07/15/24 07/15/24 11:44 Time: 11:47 07/15/24 11:44 Patient unable to answer at this time (ie. confused, unrespo /Reproduction History /Reproductive History - digital content specialist: /Reproductive Hx- digital content specialist Hx Now No 07/15/24 11:44 Gestational Age (in weeks): EDC: Hx Hx Para Hx Section SAB No 07/26/24 15:05 Active Medications Active Medications: Current Medications Generic Name Dose Route Start Last Admin Trade Name Freq PRN Reason Stop Dose Admin Cefazolin Sodium 2 gm/ N/A 20 mls @ 400 mls/hr 07/29/24 07:30 IV 07/29/24 07:32 PREOP ONE Sodium Chloride 1,000 mls @ 15 mls/hr 07/29/24 06:45 07/29/24 06:44 IV 15 mls/hr .Q48H JOHN Administration PFSH Medical History Depression Injury of back History of back problems Wears contact lenses Non-smoker Home Medications ?Medication ?Instructions ?Recorded ?Last Taken ?Type amitriptyline 25 mg tablet 10 mg PO QHS Sleep 03/13/22 04/30/22 History rizatriptan 10 mg tablet 10 mg PO PRN PRN MIGRAINES 0 11/21/22 Unknown History fluoxetine 20 mg capsule 20 mg PO DAILY #90 caps 02/02 Unknown Rx amitriptyline 10 mg tablet 10 mg PO QHS 05/25/24 Unkno wn History rizatriptan 10 mg tablet (Maxalt) See Rx Instructions PO .COMPLEX 05/25/24 Unknown History levonorgestrel (Mirena) 1 device intrauterine ONCE 0 06/08/24 Unknown History cephalexin 500 mg capsule 500 mg PO BID #10 caps 07/20 Unknown Rx erythromycin 5 mg/gram (0.5 %) eye 1 applic ophthalmic (eye) DAILY 07/20/24 Unknown Rx ointment #3.5 grams Allergy/AdvReac Type Severity Reaction Status Date / Time No Known Allergies Allergy Verified 07/29/24 06:32 Family History Father Hyperlipidemia Mother Hypertension Aunt Breast cancer Surgical History History of umbilical hernia repair S/P tonsillectomy Social History current occupational status: employed current occupation: [employer]; Viktor works in [employer] Smoking Status: Never smoker alcohol intake: current substance use type: does not use caffeine: No what type of physical activity do you participate in: walking and weight training frequency: 5-6 times per week seatbelt use: always do you feel safe at home: Yes additional social history: - Viktor pt denies edible, denies vaping, denies marijuana use, denies aspirn uses ibuprofen as needed. Review of Systems (Anesthesia) ROS Narrative System reviewed and no additional complaints, except as documented.
[2024-07-29] MEDS: Cefazolin 2 GM in Syringe IV (07:30)
[2024-07-29] MEDS: EPINEPHrine Nasal 0.1% 30 ML Bottle (08:15)
[2024-07-29] MEDS: Erythromycin Base 1 OPTH.TUBE 3.5 APPLIC OPHTHALMIC (08:15)
[2024-07-29] MEDS: Tetracaine 0.5% Ophthalmic Bottle 1 DRP (08:16)
[2024-07-29] MEDS: Povidone Iodine 30 ML Opthalmic Sol 1 DRP (08:17)
[2024-07-29] MEDS: Lidocaine 1% /Epi 1:100 (20ml) 20 ML Vial (08:17)
--- NOTE | 2024-07-29 09:15 | EX.PCM.DISCH ---
Discharge Instructions Dressing / Incision Additional Dressing/Incision Instructions:: Follow the instructions given in the office. Keep your head elevated. Maintain cool compresses today. Follow Up Care Please Follow Up With: Snehal Burton MD Test Results: Test results from this visit will be discussed in further detail at your follow-up appointment, if applicable. Discharge Plan Admission Attending Provider: Snehal Burton Primary Care Provider: Shad Gonzáles Instructions Print Language: Irish Discharge Orders/Prescriptions Prescriptions: No Action amitriptyline 25 mg tablet 10 mg PO QHS fluoxetine 20 mg capsule 20 mg PO DAILY Qty: 90 4RF Mirena 21 mcg/24hr (up to 8 yrs) 52 mg intrauterine device 1 device intrauterine ONCE Rx Instructions: as a single dose rizatriptan [Maxalt] 10 mg tablet See Rx Instructions PO .COMPLEX Rx Instructions: take 1 tab at onset of headache; if no relief may repeat 1 tab after at least 2 hrs; max = 3 tabs/24 hr PO amitriptyline 10 mg tablet 10 mg PO QHS cephalexin 500 mg capsule 500 mg PO BID Qty: 10 0RF erythromycin 5 mg/gram (0.5 %) ointment 1 applic ophthalmic (eye) DAILY Qty: 3.5 0RF rizatriptan 10 mg tablet 10 mg PO PRN PRN (Reason: MIGRAINES) Patient Comments: TAKE 1 TABLET AT ONSET OFTMIGRAINE NEEDED. MAY REPEAT 2ND DOSE IN 2 HOURS. MAX 2/DAY Referrals / Follow Up: Shad Gonzáles MD [Primary Care Provider] - Disposition Disposition (needs filled in before D/C Order can be placed): Home, Self Care
--- NOTE | 2024-07-29 09:20 | OP.PCM_ITS ---
Problems Associated Problem List Diagnoses (1) Status post blepharoplasty: Operative Report (Standard) Operative Information Date of Procedure: 07/29/24 Pre-Operative Diagnosis: Bilateral upper eyelid dermatochalasis; visual field defect Post-Operative Diagnosis: Same Surgery/Procedure Performed: Bilateral upper blepharoplasty supervisor functional testing: Yes Radio Dispatcher: Margaret Velazco Tasks completed by educational program assistant: Retracting Type of Anesthesia: General RN Documented Start/Stop Times: Operation Date: 07/29/24 07:30 Case Time Into Pre-Op 07/29/24 06:33 Anesthesia Start 07/29/24 07:30 Into Room 07/29/24 07:30 Out of Pre-Op 07/29/24 07:30 Procedure Start 07/29/24 08:00 Procedure Start Time: 08:00 Procedure Stop Time: 09:20 Select all DRAINS/GRAFTS/IMPLANTS that apply: None Estimated Blood Loss: Minimal Specimen collected: No Description of surgery: The patient presents today with bilateral upper eyelid dermatochalasis and visual field defect. She presents for bilateral upper blepharoplasty. She is marked in the preop holding area prior to surgery. Informed consent is obtained. The patient is brought to the operating room and placed under general anesthesia in the supine position. Care is taken to pad all pressure points, apply a warming blanket, and sequential compression stockings. The face is prepped and draped in the usual sterile fashion. We initially began with instillation of tetracaine in both eyes followed by placement of lubricated corneal schumacher. We initially began with injecting the proposed incision lines with 1% Xylocaine with epinephrine. After allowing an adequate amount of time for the medication to take effect, the incisions were made. A layer of skin within the demarcated area is removed. Meticulous hemostasis is performed with bipolar cautery. A thin strip of orbicularis oculi is then removed and again meticulous hemostasis obtained. Following this, the incisions tacked together with fast-absorbing gut suture. Cool compresses are placed on the eye and we perform the identical procedure on the opposite side. Following this, a 5-0 Prolene sutures used to approximate skin edges in a subcuticular fashion. The suture is anchored at the mandaeism and the glabella using Mastisol and Steri- Strips. The corneal schumacher are removed and cool compresses are placed on the eyes. She tolerated the procedure well. She was taken to the recovery room in an awakening in stable condition. Needle and sponge counts are correct. Surgical Findings: As above Complications Complications: No Admit VTE Documentation VTE Mechan Device Prophylaxis: SCD's
--- NOTE | 2024-07-29 09:25 | PCM.POST.ANE ---
Anesthesia: Postop Eval I Current Vital Signs Temperature: 98.8 F Pulse Rate: 99 Blood Pressure: 118/72 Respiratory Rate: 16 Pulse Ox: 93 Oxygen Delivery Method: Room Air Assessment Airway patent: Yes Spontaneous unlabored respirations: Yes Mental status: Awake and Calm nausea: No Vomiting: No Anesthesia Complication: No Fluid Hydration Crystalloid volume administer (ml): 1,200 Total IV fluid infused: 1,200 Progress Note Anesthesia document: Postop Eval 1 completed: Yes
--- NOTE | 2024-07-29 10:44 | SUR.PHASEII ---
PATIENT'S CAME OUT AND SAID HE TURNED OFF HER IV SINCE IT WAS BURNING AND HE WAS QUESTIONING IV INFILTRATION. I WENT IN THE ROOM. I ACCESSED THE IV SITE AND IT ISN'T HARD, RED OR EDEMATOUS. SHE STATES IT ISN'T HURTING RIGHT NOW SO I WILL WAIT TILL SHE EATS SOME JUST IN CASE WE CAN REPOSITION IT IF NAUSEA MEDICATIONS WOULD NEED TO BE GIVEN.
--- NOTE | 2024-07-29 14:11 | POSTOPAN2_ITS ---
Anesthesia Postop Eval I Sum Postop Eval Completion status Anesthesia document: Postop Eval 1 completed: Yes Anesthesia Postop Eval I Summary Anesthesia Postop Eval I Summary: Anesthesia Postop Eval I: Assessment Summary Airway patent Yes 07/29/24 09:36 COPRA [email or web address].[email or web address] Spontaneous unlabored Yes 07/29/24 09:36 COPRA SAMPLER.GDOTT respirations Mental status Awake,Calm 07/29/24 09:36 COPRA SAMPLER.GDOTT nausea No 07/29/24 09:36 COPRA SAMPLER.GDOTT Vomiting No 07/29/24 09:36 COPRA SAMPLER.GDOTT Anesthesia Postop Eval I: Fluid Summary Crystalloid volume administer 1,200 07/29/24 09:36 COPRA SAMPLER.GDOTT (ml) Colloids volume administered ( ml) Blood Product volume administered (ml) Total IV fluid infused 1,200 07/29/24 09:36 COPRA SAMPLER.GDOTT Anesthesia Postop Eval I: Summary Notes Anesthesia Complication No 07/29/24 09:36 COPRA SAMPLER.GDOTT Anesthesia Complication Comment: Post-operative progress note Anesthesia: Postop Eval II Evaluation Mental status: Awake Pain Level: 1 nausea: No Vomiting: No
--- NOTE | 2024-07-29 14:11 | PCM.POSTANE2 ---
Anesthesia Postop Eval I Sum Postop Eval Completion status Anesthesia document: Postop Eval 1 completed: Yes Anesthesia Postop Eval I Summary Anesthesia Postop Eval I Summary: Anesthesia Postop Eval I: Assessment Summary Airway patent Yes 07/29/24 09:36 DATABASE CONSULTANT.[email or web address] Spontaneous unlabored Yes 07/29/24 09:36 DATABASE CONSULTANT.GDOTT respirations Mental status Awake,Calm 07/29/24 09:36 DATABASE CONSULTANT.GDOTT nausea No 07/29/24 09:36 DATABASE CONSULTANT.GDOTT Vomiting No 07/29/24 09:36 DATABASE CONSULTANT.GDOTT Anesthesia Postop Eval I: Fluid Summary Crystalloid volume administer 1,200 07/29/24 09:36 DATABASE CONSULTANT.GDOTT (ml) Colloids volume administered ( ml) Blood Product volume administered (ml) Total IV fluid infused 1,200 07/29/24 09:36 DATABASE CONSULTANT.GDOTT Anesthesia Postop Eval I: Summary Notes Anesthesia Complication No 07/29/24 09:36 DATABASE CONSULTANT.GDOTT Anesthesia Complication Comment: Post-operative progress note Anesthesia: Postop Eval II Evaluation Mental status: Awake Pain Level: 1 nausea: No Vomiting: No
== END 2024-07-29 12:20 | disposition home or self-care (01) ==
LOC: SDC 06:01 → AC 06:02
PROVIDERS: Anesthesiology; PCP Family Medicine; Referring Provider Plastic Surgery; Visit Provider Plastic Surgery
PROC: (CPT 15823; principal; 2024-07-29 07:20)
DX: H02.831 Dermatochalasis of right upper eyelid (principal); H02.834 Dermatochalasis of left upper eyelid; F32.A Depression, unspecified; Z79.899 Other long term (current) drug therapy
CPT/HCPCS: 15823; 00103; 81025; J2405